=== PATIENT | female | born 1960 | race Caucasian/White ===

== ENCOUNTER 2019-02-18 13:42 | Emergency (ER) | payer BC ==
--- NOTE | 2019-02-18 14:06 | UC ---
Cardiac HPI - HPI Summary HPI Summary: CHIEF COMPLAINT and HPI: This is a healthy 58 y/o female complaining of 5 hours of back and upper chest discomfort. This condition began this morning , approximately 5 hours ago, after an episode of diarrhea. Patient had two more diarrhea bowel movements subsequently. Her daughter also has had diarrhea. Both shared a plate of the same food last night. Pain has decreased over 5 hours and in CCC felt "achey" but no pain. At first the intensity of the pain was 8/10. Medications & Allergies Reviewed. Nurses Note Reviewed. Hypertension status reviewed. None. Visit History Reviewed. Chronic conditions and problem list reviewed. Information contributory to present complaint: healthy; noncontributory to present complaint. - History of Current Complaint Chief Complaint: UCChestPain Stated Complaint: CHEST PRESSURE/BACK PAIN Hx Obtained From: Patient Pain Intensity: 8 - Allergy/Home Medications Allergies/Adverse Reactions: Allergies Allergy/AdvReac Type Severity Reaction Status Date / Time No Known Allergies Allergy Verified 02/18/19 13:55 Home Medications: Home Medications Cetirizine HCl [Zyrtec] 10 mg PO DAILY PRN 02/18/19 [History Confirmed 02/18/19] Cholecalciferol (Vitamin D3) [Vitamin D3] 2,000 unit PO DAILY 02/18/19 [History Confirmed 02/18/19] Naproxen Sodium [Aleve] 220 mg PO ONCE PRN 02/18/19 [History Confirmed 02/18/19] PMH/Surg Hx/FS Hx/Imm Hx - Additional Past Medical History Additional PMH: PAST MEDICAL HISTORY: denies hospitalizations and surgeries. FAMILY HISTORY: Positive history of: -CARDIOVASCULAR DISEASE SOCIAL HISTORY: Employment: [employer] Family Environment: lives in [place]. Habits: non smoker Previously Healthy: Yes - Surgical History Surgical History: None - Social History Alcohol Use: None Substance Use Type: None Smoking Status (MU): Never Smoked Tobacco Review of Systems All Other Systems Reviewed And Are Negative: Yes Constitutional: Positive: Negative. Negative: Fever Skin: Positive: Negative Eyes: Positive: Negative ENT: Positive: Negative Respiratory: Positive: Negative, Shortness Of Breath. Negative: Cough Cardiovascular: Positive: Chest Pain - discomfort from back. Negative: Palpitations Gastrointestinal: Positive: Negative, Diarrhea - times 3, Nausea. Negative: Abdominal Pain, Vomiting Genitourinary: Positive: Negative Is Patient Immunocompromised?: No Physical Exam - Summary Physical Exam Summary: Appearance: The patient is well-appearing, is in no pain or distress, and is well-nourished. At the time of examination, patient was completely comfortable and appeared well. Eyes: Conjunctiva are clear. Pupils are equal and reactive to light and accommodation. Extra ocular muscle movement is intact. ENT: The hearing is grossly normal, the pharynx is normal, and the TMs are normal. There is no muffled or hoarse voice. No stridor. Neck: The neck is supple and there is no lymphadenopathy. Respiratory: The chest is nontender to palpation and without crepitus. The lungs are clear, there are normal breath sounds, and there is no respiratory distress. No wheezes, rales or rhonchi. Cardiovascular: Heart sounds reveal a regular rate and rhythm. There are no clicks, rubs or murmurs. There are no carotid bruits or thrills. Circulation is grossly intact. Pulses and blood pressure equal and WNL bilateral upper extremities. No orthostasis. Abdomen: The abdomen is soft and nontender. There is no organomegaly. Bowel sounds are present and within normal limits. No point tenderness at McBurneys point. Musculoskeletal: Strength is intact. The patient moves all extremities. Neurological: The patient is alert. Motor and sensory are examination grossly intact. Speech is normal. Psychological: The patient displays age appropriate behavior Skin: Negative for rashes. EKG: sinus rhythm without ectopy or evidence of ischemia. Triage Information Reviewed: Yes Vital Signs: Initial Vital Signs Temp 97.5 F 02/18/19 13:53 Pulse 73 02/18/19 13:53 Resp 20 02/18/19 13:53 BP 114/65 02/18/19 13:53 Pulse Ox 100 02/18/19 13:53 Vital Signs Reviewed: Yes - Assessment/Plan Course Of Treatment: MEDICAL DECISION MAKING & PLAN: This is a healthy 58 y/o female complaining of 5 hours of back and upper chest discomfort. This condition began this morning, approximately 5 hours ago, after an episode of diarrhea. Patient had two more diarrhea bowel movements subsequently. Her daughter also has had diarrhea. Both shared a plate of the same food last night. Pain has decreased over 5 hours and in CCC felt "achey" but no pain. At first the intensity of the pain was 8/10. Heart sounds reveal a regular rate and rhythm. There are no clicks, rubs or murmurs. There are no carotid bruits or thrills. Circulation is grossly intact. Pulses and blood pressure equal and WNL bilateral upper extremities. No orthostasis. EKG: WNL. No old EKG. My concern with this patient was CVD and aortic dissection given her back pain. However, her clinical examination, lack of risk factors and unremarkable EKG, normal chest and abdominal films, and the fact that her daughter also had diarrhea, suggests that her transient pain may have been referred abdominal pain from food poisoning. I spoke at length with the patient and her daughter cautioning her to go directly to the ED for any new chest or back pain. MEDICATIONS REVIEWED: Medications have been included in the original chart and reviewed. HYPERTENSION STATUS REVIEWED. None. - Differential Diagnoses - Chest Pain Differential Diagnosis/HQI/PQRI: Angina, Aortic Aneurysm, GI Disease, Pulmonary Embolism - Differential Diagnoses - Hypertension Differential Diagnosis/HQI PQRI: Myocardial Infarction - Clinical Impression Provider Diagnosis: Chest pain Discharge - Sign-Out/Discharge Documenting (check all that apply): Patient Departure All imaging exams completed and their final reports reviewed: Yes - Discharge Plan Condition: Stable Disposition: HOME Patient Education Materials: Angina (DC), Chest Pain (DC), Food Poisoning (ED) Referrals: No Primary Care Phys,NOPCP [Primary Care Provider] - Additional Instructions: WE DISCUSSED: PLEASE SEEK CARE AT THE EMERGENCY DEPARTMENT IF SYMPTOMS WORSEN OR IF NEW SYMPTOMS DEVELOP. FOLLOW UP WITH YOUR PRIMARY CARE PHYSICIAN IF CONDITION CONTINUES BEYOND 3 DAYS WITHOUT IMPROVEMENT. We are open from 7 a.m. to 10 p.m. Call us with any questions or concerns. YOUR DIAGNOSIS IS: probably referred pain from your abdomen; food poisoning, mild RECOMMENDATION IS: pepto bismol. OTHER INSTRUCTIONS: As we discussed at length, there are a number of diagnosis of concern with back pain coming around to your chest. However, your EKG, CXR and abdominal xrays were all within normal limits. Of more importance, your examination is completely normal and your daughter had the same diarrhea. Also your diarrhea started before your back and chest pain. I have given you information with warning signs for chest pain. If any of these occur, go to ED or call an ambulance. Rest, eat simply, for any stomach upset try Pepto Bismol; for heartburn try Mylanta. GO TO ED FOR ANY REPEATED SYMPTOMS OR IF YOU FEEL FAINT, HAVE CHEST PAIN OR SHORTNESS OF BREATH. For pain: Ibuprofen (Motrin and other brand names) 400-600mg PLUS acetaminophen (Tylenol and other brand names) 500mg - 1000mg every 8 hours. Maximum is 3 doses a day. If this dosage is required for more than 5 days, you should re-check with your doctor. The combination of these two over-the- counter medications can be more effective than each one taken alone. Please check with the pharmacist if you have questions about your allergies to these medications. To help you sleep: If you feel as if you want to calm down and get sleepy, over the counter diphenhydramine (Benadryl and other brand names), 25 mg up to every 8 hours may be useful. Please check with the pharmacist if you have questions about your allergies to these medications. Please check with the pharmacist if you have questions about your allergies to these medications. - Billing Disposition and Condition Condition: STABLE Disposition: Home
== END 2019-02-18 15:20 | disposition home or self-care (01) ==
LOC: UCEAST 13:42
DX: R07.89 Other chest pain (principal); M54.9 Dorsalgia, unspecified; R19.7 Diarrhea, unspecified; R11.0 Nausea
CPT/HCPCS: 71046; 74019; 93005; 99202; G0463